=== PATIENT | female | born 1985 | race Caucasian/White ===

== ENCOUNTER 2022-10-12 19:21 | Emergency (ER) | payer OTHER ==
[~2022-10-12] VITALS: Ht 162.6 cm; Wt 99.8 kg
[2022-10-12] MEDS ORDERED: IBUPROFEN 600 MG TAB PO STA (19:44)
[2022-10-12] MEDS ORDERED: IBUPROFEN 600 MG TAB ONE (19:50)
[2022-10-12] MEDS ORDERED: NAPROSYN500 MG PO (22:40)
[2022-10-12] MEDS ORDERED: ORPHENADRINE C100 MG PO (22:40)
[2022-10-12 22:54] VITALS: O2SAT 100
[2022-10-12] MEDS ORDERED: ORPHENADRINE CITRATE 30 MG/ML VIAL IM ONE (23:00)
== END 2022-10-12 23:23 | disposition home or self-care (01) ==
LOC: ER 19:31
DX: S16.1XXA Strain of muscle, fascia and tendon at neck level, initial encounter (principal); R51.9 Headache, unspecified; R11.0 Nausea; V43.62XA Car passenger injured in collision with other type car in traffic accident, initial encounter; Y92.488 Other paved roadways as the place of occurrence of the external cause; E03.9 Hypothyroidism, unspecified
CPT/HCPCS: 72040; 99283; J2360